=== PATIENT | female | born 1975 | race Caucasian/White ===

== ENCOUNTER 2020-09-12 16:09 | Outpatient (CLI) | payer OTHER ==
[2020-09-12 16:44] LABS: % IRON SATURATION 14 % (20-50); IRON 54 ug/dL (28-170); TOTAL IRON BINDING CAPACITY 386 ug/dL (250-450); TRANSFERRIN 276 mg/dL (192-382)
== END 2020-09-12 23:59 | disposition home or self-care (01) ==
LOC: LAB 16:09
PROVIDERS: ATTEND Obstetrics & Gynecology
DX: N92.0 Excessive and frequent menstruation with regular cycle (principal); Z13.21 Encounter for screening for nutritional disorder; N92.6 Irregular menstruation, unspecified
CPT/HCPCS: 36415; 82306; 83540; 84443; 84466

== ENCOUNTER 2020-10-22 14:37 | Outpatient (CLI) | payer OTHER | END 2020-10-22 14:38 | disposition home or self-care (01) | LOC: LAB 14:37 | PROVIDERS: ATTEND Obstetrics & Gynecology | DX: Z01.812 Encounter for preprocedural laboratory examination (principal); N92.0 Excessive and frequent menstruation with regular cycle; N94.6 Dysmenorrhea, unspecified; Z20.822 Contact with and (suspected) exposure to COVID-19 ==

== ENCOUNTER 2020-10-25 07:07 | Day surgery (SDC) | payer OTHER ==
[~2020-10-25 07:07] MED LIST: ACETAMINOPHEN 1,000 MG/100 ML 100 ML IV ONE; CELECOXIB 100 MG CAPSULE PO ONE; GABAPENTIN 400 MG CAPSULE ONE
[2020-10-25 07:27] LABS: HCG UR QUAL NEGATIVE
[2020-10-25] MEDS ORDERED: LACTATED RINGERS 1,000 ML IV ONE ×2 (07:51→10:44)
[2020-10-25] MEDS ORDERED: NALOXONE 0.4 MG/ML VIAL IVP PRN (08:09)
[2020-10-25] MEDS ORDERED: ePHEDrine 50 MG/ML VIAL IVP PRN (08:09)
[2020-10-25] MEDS ORDERED: ATROPINE ABBOJECT 1 MG/10 ML SYRINGE IVP PRN (08:09)
[2020-10-25] MEDS ORDERED: MORPHINE 2 MG/ML CARPUJECT IVP PRN (08:09)
[2020-10-25] MEDS ORDERED: fentaNYL 100 MCG/2 ML VIAL IVP PRN (08:09)
[2020-10-25] MEDS ORDERED: HYDROmorphone 0.5 MG/0.5 ML SYRINGE IVP PRN (08:09)
[2020-10-25] MEDS ORDERED: METOCLOPRAMIDE 10 MG/2 ML VIAL IVP PRN (08:09)
[2020-10-25] MEDS ORDERED: ONDANSETRON 4 MG/2 ML VIAL IVP PRN ×2 (08:09→10:40)
--- NOTE | 2020-10-25 08:09 | ANESTHESIA ---
Pre-Anesthesia VS, & Labs - Diagnosis menorrhagia, dysmenorrhea - Procedure Myosure hysteroscopy, D&C, IUD placement Vital Signs: Temp Pulse Resp BP Pulse Ox 36.2 C L 89 18 134/98 H 99 10/25/20 07:25 10/25/20 07:25 10/25/20 07:25 10/25/20 07:25 10/25/20 07:25 Height: 5 ft 2 in Weight (kg): 94.8 kg Body Mass Index: 38.2 BMI Classification: Obese - NPO >8 hours - Is Patient ?: No - Lab Results Current Lab Results: Laboratory Tests 10/25/20 07:49: Blood Type Recheck A POSITIVE 10/25/20 07:46: POC Whole Bld Glucose 102 H 10/25/20 07:34: Crossmatch IS Only See Detail Lab results reviewed: Yes Home Medications and Allergies Home Medications: Ambulatory Orders Amitriptyline HCl 50 mg PO QPM 10/22/20 Amitriptyline HCl 50 mg PO QPM 10/22/20 Allergies/Adverse Reactions: Allergies Allergy/AdvReac Type Severity Reaction Status Date / Time No Known Drug Allergies Allergy Verified 10/22/20 11:11 Anes History & Medical History - Anesthetic History Anesthesia Complications: reports: No previous complications Family history of Anesthesia Complications: Denies Family history of Malignant Hyperthermia: Denies - Medical History Cardiovascular: reports: None Pulmonary: reports: None Gastrointestinal: reports: None Urinary: reports: None Musculoskeletal: reports: None Endocrine/Autoimmune: reports: None Skin: reports: None Psychosocial: reports: No issues indicated, Anxiety (r/t todays surgery), Cannabis (occasional) History of Cancer?: No Exam General: Alert, Oriented x3, Cooperative Dental: WNL Mouth Openin Fingerbreadth Neck Mobility: Normal Mallampati classification: I Thyromental Distance: 4-6 cm Respiratory: Lungs clear, Normal breath sounds, No respiratory distress Cardiovascular: Regular rate Neurological: Normal speech Mental/Cognitive Status: Alert/Oriented X3, Normal for patient Cognitive Status: Within normal limits Plan Anesthesia Type: General Consent for Procedure(s) Verified and Reviewed: Yes Code Status: Attempt Resuscitation ASA classification: 1-Healthy patient Is this case an emergency?: No
[2020-10-25] MEDS ORDERED: LACTATED RINGERS 1,000 ML IV SCH (09:00)
[2020-10-25] MEDS ORDERED: BUPIVACAINE 0.5% PF 30 ML VIAL INFIL ONE ×2 (09:24)
[2020-10-25] MEDS ORDERED: LIDOCAINE 2%-EPI 1:100000 20 ML MDV SUBQ ONE ×2 (09:25)
[2020-10-25] MEDS ORDERED: SILVER NITRATE APPLICATOR TOP ONE (09:31)
[2020-10-25] MEDS ORDERED: BUPIVACAINE 0.5% PF 30 ML VIAL ONE (09:31)
[2020-10-25] MEDS ORDERED: LIDOCAINE 2%-EPI 1:100000 20 ML MDV ONE (09:31)
[2020-10-25] MEDS ORDERED: LEVONORGESTREL 20 MCG/24H IUD IY ONE ×2 (09:34→10:13)
[2020-10-25] MEDS ORDERED: fentaNYL 100 MCG/2 ML VIAL ONE (09:35)
[2020-10-25] MEDS ORDERED: MIDAZOLAM 2 MG/2 ML VIAL ONE (09:35)
[2020-10-25] MEDS ORDERED: PROPOFOL 200 MG/20 ML VIAL IVP ONE (09:36)
[2020-10-25] MEDS ORDERED: LIDOCAINE-MPF 2% 5 ML VIAL ONE (09:36)
[2020-10-25] MEDS ORDERED: DEXAMETHASONE 4 MG/ML VIAL ONE (10:24)
[2020-10-25] MEDS ORDERED: ONDANSETRON 4 MG/2 ML VIAL ONE (10:24)
[2020-10-25] MEDS ORDERED: LORazepam 2 MG/ML VIAL IVP PRN (10:40)
[2020-10-25] MEDS ORDERED: oxyCODONE 5 MG TABLET PO PRN (10:40)
[2020-10-25] MEDS ORDERED: KETOROLAC 30 MG/ML VIAL IVP PRN (10:41)
--- NOTE | 2020-10-25 10:44 | OPERATIVE REPORT ---
Operative Report - General Procedure Date: 10/25/20 Planned Procedure: HYSTERSCOPY WITH MYOSURE AND MIRENA PLACEMENT Pre-Op Diagnosis: MENORRHAGIA DYSMENORRHEA Procedure Performed: SAME Post Op Diagnosis: ENDOMETRIAL POLYP - Procedure Note Primary Surgeon: Michael Sharma MD Anesthesia Provider: Maryanne Feldman CRNA Anesthesia Technique: General LMA IV Fluids (mL): 300 Estimated Blood Loss (mL): 5 Complications: none - Other Other Information/Narrative: 400 ml fluid deficit
--- NOTE | 2020-10-25 11:07 | OPERATIVE REPORT ---
DATE OF SERVICE: 10/25/2020 Physician: Michael Sharma MD PREOPERATIVE DIAGNOSES: Menorrhagia, dysmenorrhea. POSTOPERATIVE DIAGNOSES: Menorrhagia, dysmenorrhea, endometrial polyp. PROCEDURE: Hysteroscopy with MyoSure resection of endometrial polyp, placement of Mirena IUD. SURGEON: Michael Sharma MD ANESTHESIA: Norma Feldman CRNA ANESTHETIC: General via LMA with paracervical block. FINDINGS: Upon entering the endometrial cavity, there is evidence of a polyp in the right cornual area. It was small in nature. The remainder of the endometrial cavity appeared to be unremarkable. No evidence of any fibroids. The Mirena was placed and then checked for its placement with the hysteroscope following its placement. PROCEDURE: Following adequate general anesthesia, patient was placed in the dorsal lithotomy position in Naif stirrups. At this point, she was prepped and draped in the usual fashion. A speculum was placed in the vagina. The cervix was visualized. The cervix was grasped with a single-tooth tenaculum, and the cervix was injected bilaterally with 5 mL of 0.25% Marcaine with 1% lidocaine with epinephrine. At this point, the cervix was dilated up to a size 7 mm dilator. The uterus was sounded to 9 cm. At this point, the hysteroscope was introduced. Both cornua were visualized. At the right cornual area, there was a small endometrial polyp, which was noticed. MyoSure LITE was used to resect this as well as resect a large portion of the endometrial cavity. At this point, the Mirena IUD was placed without difficulty. Location was checked with the hysteroscope. The strings were then trimmed. Patient tolerated procedure well and was taken to recovery in stable condition. Sponge and instrument count were correct. TD: 10[facility]25/2020 10:55 [facility]
[2020-10-25 11:25] VITALS: BP 130/83
--- NOTE | 2020-10-25 12:50 | ANESTHESIA POST OP EVALUATION ---
Anesthesia Post Eval - Post Anesthesia Eval Vitals: Last Vital Signs Temp 36.3 C L 10/25/20 10:34 Pulse 75 10/25/20 11:24 Resp 17 10/25/20 11:24 BP 130/83 H 10/25/20 11:24 Pulse Ox 98 10/25/20 11:24 CV Function Including HR & BP: positive: Stable Pain Control: positive: Satisfactory Nausea & Vomiting: positive: Negative Mental Status: positive: Baseline Respiratory Status: Airway Patent Hydration Status: Satisfactory Anesthesia Complications: positive: None
== END 2020-10-25 07:08 | disposition home or self-care (01) ==
LOC: SDS 07:07
PROVIDERS: ATTEND Obstetrics & Gynecology
PROC: 0UB98ZZ Excision of Uterus, Via Natural or Artificial Opening Endoscopic (ICD-10-PCS; principal; 2020-10-25 08:45)
PROC: 0UH97HZ Insertion of Contraceptive Device into Uterus, Via Natural or Artificial Opening (ICD-10-PCS; 2020-10-25 08:45)
DX: N92.0 Excessive and frequent menstruation with regular cycle (principal); N94.6 Dysmenorrhea, unspecified; N84.0 Polyp of corpus uteri; Z30.430 Encounter for insertion of intrauterine contraceptive device; E66.9 Obesity, unspecified; Z68.38 Body mass index [BMI] 38.0-38.9, adult
CPT/HCPCS: 58300; 58558; 81025; 86850; 86900; 86901; 86920; A9270; J0131; J7120; J7298